=== PATIENT | female | born 1955 | race Two or more races ===

== ENCOUNTER 2024-08-18 09:12 | Emergency (ER) | payer BC, OTHER ==
[~2024-08-18] VITALS: Ht 157.5 cm; Wt 45.0 kg
[~2024-08-18 09:12] MED LIST: BUSP10TA3 PO; OLAN2.5T77 PO; TRAZ-251 PO
[2024-08-18 09:21] VITALS: O2SAT 99
[2024-08-18 10:25] VITALS: BP 122/62; PULSE 50; RESP 15; TEMP 36.6; O2SAT 99
== END 2024-08-18 10:31 | disposition home or self-care (01) ==
LOC: ER 09:12
DX: S01.81XA Laceration without foreign body of other part of head, initial encounter (principal); Z98.890 Other specified postprocedural states; W18.30XA Fall on same level, unspecified, initial encounter; Y93.89 Activity, other specified; Y92.89 Other specified places as the place of occurrence of the external cause; Y99.8 Other external cause status
CPT/HCPCS: 12013; 99282